=== PATIENT | male | born 1960 | race Caucasian/White ===

== ENCOUNTER 2018-05-17 20:27 | Emergency (ER) | payer OTHER ==
[~2018-05-17] VITALS: Ht 193 cm; Wt 113.4 kg
[2018-05-17 20:41] VITALS: Ht 193 cm; Wt 113.4 kg
[2018-05-17 22:40] VITALS: BP 158/87
== END 2018-05-17 22:40 | disposition home or self-care (01) ==
LOC: ED 20:27
DX: S01.112A Laceration without foreign body of left eyelid and periocular area, initial encounter (principal); Z88.0 Allergy status to penicillin; X58.XXXA Exposure to other specified factors, initial encounter; Y93.B3 Activity, free weights; Y92.89 Other specified places as the place of occurrence of the external cause; Y99.8 Other external cause status
CPT/HCPCS: Q0092